=== PATIENT | male | born 1965 | race Caucasian/White ===

== ENCOUNTER 2020-07-20 18:06 | Emergency (ER) | payer BC ==
[~2020-07-20] VITALS: Ht 180.3 cm; Wt 100.0 kg
[2020-07-20 18:11] VITALS: TEMP 98.2
[2020-07-20] MEDS ORDERED: CEPHALEXIN500 M1 PO (19:50)
[2020-07-20] MEDS ORDERED: NORCO 325 MG-51 TAB PO (19:50)
[2020-07-20 19:56] VITALS: BP 139/95; PULSE 74
== END 2020-07-20 19:59 | disposition home or self-care (01) ==
LOC: COL.ER 18:06
DX: S62.666B Nondisplaced fracture of distal phalanx of right little finger, initial encounter for open fracture (principal); S61.216A Laceration without foreign body of right little finger without damage to nail, initial encounter; W23.1XXA Caught, crushed, jammed, or pinched between stationary objects, initial encounter